=== PATIENT | male | born 1950 | race Two or more races ===

== ENCOUNTER 2024-08-09 11:00 | Emergency (ER) | payer OTHER ==
[~2024-08-09] VITALS: Ht 165.1 cm; Wt 63.6 kg
[~2024-08-09 11:00] MED LIST: APIX5TAB PO; ATOR20TA PO; CARB1TAB36 PO; CHL25 PO; DILT60TA3 PO
[2024-08-09 11:04] VITALS: TEMP 98.3
[2024-08-09] MEDS: ACETAMINOPHEN 500 MG TABLET PO ONE (12:41)
[2024-08-09] MEDS ORDERED: ACET-2247 PO (13:00)
[2024-08-09 13:15] VITALS: BP 125/61; PULSE 63; RESP 16; O2SAT 99
== END 2024-08-09 13:21 | disposition home or self-care (01) ==
LOC: EMS 11:00
DX: S80.02XA Contusion of left knee, initial encounter (principal); E78.00 Pure hypercholesterolemia, unspecified; G20.A1 Parkinson's disease without dyskinesia, without mention of fluctuations; W01.0XXA Fall on same level from slipping, tripping and stumbling without subsequent striking against object, initial encounter; Y93.89 Activity, other specified; Y92.89 Other specified places as the place of occurrence of the external cause; Y99.8 Other external cause status
CPT/HCPCS: 99283

== ENCOUNTER 2025-09-07 14:20 | Emergency (ER) | payer MEDICARE, OTHER ==
[~2025-09-07] VITALS: Ht 152.4 cm; Wt 56.5 kg
[~2025-09-07 14:20] MED LIST changes: +ACET-2247 PO
[2025-09-07] MEDS ORDERED: TRAZ-252 PO (14:32)
[2025-09-07] MEDS ORDERED: MELA5TAB40 PO (14:32)
[2025-09-07 15:14] LABS: APPEARANCE,URINE CLEAR (CLEAR); GLUCOSE, URINE (UA) NEGATIVE (NEGATIVE); LEUKOCYTE ESTERASE ,URINE NEGATIVE (NEGATIVE); NITRATE,URINE NEGATIVE (NEGATIVE); OCCULT BLOOD,URINE NEGATIVE (NEGATIVE); PH,URINE DRUG SCREEN 6.0 (5.0-8.0); SPECIFIC GRAVITIY, URINE 1.031 (1.003-1.030)
[2025-09-07 15:18] LABS: ALCOHOL, URINE DRUG SCREEN NEGATIVE (NEGATIVE); AMPHET/METH SCREEN,URINE NEGATIVE (NEGATIVE); BARBITURATE SCREEN, URINE NEGATIVE (NEGATIVE); CANNABINOID SCREEN,URINE NEGATIVE (NEGATIVE); COCAINE SCREEN,URINE NEGATIVE (NEGATIVE); METHADONE SCREEN, URINE NEGATIVE (NEGATIVE)
[2025-09-07 15:21] LABS: PLATELET COUNT (AUTO) 228 K/uL (150-450); RED BLOOD CELL COUNT(AUTO) 4.04 MIL/uL (4.50-5.90); RED CELL DISTRIBUTION WIDTH 14.4 % (11.5-14.5); WHITE BLOOD COUNT (AUTO) 7.6 K/uL (4.5-11.0)
[2025-09-07 15:28] LABS: CALCIUM, TOTAL 8.0 mg/dL (8.8-10.5); CREATININE 0.82 mg/dL (0.60-1.30); GLOMERULAR FILTR. RATE CALC > 60 mL/min (>60); GLUCOSE,RANDOM 116 mg/dL (70-110); SODIUM SERUM 140 mmol/L (136-145); UREA NITROGEN, BLOOD 19 mg/dL (7-18)
[2025-09-07 15:34] LABS: ASPARTATE AMINOTRANSFERASE 28 U/L (15-37); TOTAL PROTEIN, SERUM 7.2 g/dL (6.4-8.2)
[2025-09-07 15:36] LABS: ALCOHOL, BLOOD (SERUM) < 3 mg/dL (0-10)
[2025-09-07 15:52] LABS: COVID AG,FIA SOURCE NASAL SWAB
[2025-09-07 16:25] LABS: SARS-COV2 (COVID) ANTIGEN,FIA Negative (Negative)
[2025-09-07 17:47] VITALS: BP 123/72; PULSE 81; RESP 18; TEMP 98.1; O2SAT 98
== END 2025-09-07 17:51 ==
LOC: EMS 14:20
DX: R45.1 Restlessness and agitation (principal); E78.00 Pure hypercholesterolemia, unspecified; F02.811 Dementia in other diseases classified elsewhere, unspecified severity, with agitation; G20.A1 Parkinson's disease without dyskinesia, without mention of fluctuations; Z79.01 Long term (current) use of anticoagulants; Z79.899 Other long term (current) drug therapy; Z20.822 Contact with and (suspected) exposure to COVID-19
CPT/HCPCS: 99283; 87426; 80048; 80076; 81003; 85025; 36415; 80307; G0480